=== PATIENT | female | born 1990 | race Hispanic/Latino ===

== ENCOUNTER 2018-05-20 12:25 | Inpatient (IN) | payer OTHER | END 2018-05-23 15:10 | disposition home or self-care (01) | LOC: LDH 12:25 → WSH 05-21 21:35 → LDH 12:26 | PROC: 10D00Z1 Extraction of Products of Conception, Low, Open Approach (ICD-10-PCS; principal; 2018-05-21 16:55) | DX: O14.04 Mild to moderate pre-eclampsia, complicating childbirth (principal); Z37.0 Single live birth; Z3A.39 39 weeks gestation of pregnancy; O62.2 Other uterine inertia ==

== ENCOUNTER 2019-04-06 12:59 | Observation (INO) | payer OTHER ==
[~2019-04-06 12:59] MED LIST: PREN-154 PO
== END 2019-04-06 14:35 | disposition home or self-care (01) ==
LOC: EDH 12:59 → LDH 13:48
PROVIDERS: ADMIT Obstetrics & Gynecology; ATTEND Obstetrics & Gynecology
DX: O36.8130 Decreased fetal movements, third trimester, not applicable or unspecified (principal); Z3A.34 34 weeks gestation of pregnancy
CPT/HCPCS: 59025; 76819; G0378

== ENCOUNTER 2022-09-11 10:20 | Observation (INO) | payer BC, OTHER ==
[~2022-09-11] VITALS: Ht 149.9 cm; Wt 64.0 kg
[2022-09-11 10:28] VITALS: BP 119/77
[2022-09-11 11:09] LABS: APPEARANCE,URINE CLEAR (CLEAR); BILIRUBIN,URINE NEGATIVE (NEGATIVE); COLOR,URINE COLORLESS (YELLOW); GLUCOSE, URINE (UA) NEGATIVE (NEGATIVE); KETONES,URINE 10 mg/dL (NEGATIVE); LEUKOCYTE ESTERASE ,URINE NEGATIVE Leu/uL (NEGATIVE); NITRATE,URINE NEGATIVE (NEGATIVE); OCCULT BLOOD,URINE NEGATIVE (NEGATIVE); PH,URINE 6.5 (5.0-8.0); PROTEIN,URINE NEGATIVE (NEGATIVE); UROBILINOGEN,URINE 0.2 mg/dL (0.2-1.0)
[2022-09-11 11:19] LABS: RBC,URINE 0-1 /HPF (0-1); SQUAMOUS EPITHELIAL CELL,UR FEW /HPF (0-2); WBC,URINE 0-1 /HPF (0-1)
[2022-09-16] MEDS ORDERED: PREN-196 PO (07:37)
== END 2022-09-11 11:48 | disposition home or self-care (01) ==
LOC: EDH 10:20 → LDH 10:21 → EDH 10:31
PROVIDERS: ADMIT Obstetrics & Gynecology; ATTEND Obstetrics & Gynecology
DX: O34.63 Maternal care for abnormality of vagina, third trimester (principal); N89.8 Other specified noninflammatory disorders of vagina; O10.913 Unspecified pre-existing hypertension complicating pregnancy, third trimester; Z3A.36 36 weeks gestation of pregnancy
CPT/HCPCS: 81001; G0378